=== PATIENT | male | born 1965 | race Caucasian/White ===

== ENCOUNTER 2017-07-22 22:36 | Emergency (ER) | payer OTHER ==
--- NOTE | ~2017-07-22 | CT71 ---
[facility] A Service [facility] RADIOLOGY TEXT RESULTS PATIENT: LUCY DONNELLY LOCATION: [facility] : 65 UNIT #: [id number] AGE: [address]: Lucy Sommers MD SEX: M ORDER DR: [id number] [facility] [address] [place], [place] [address] [id number] MR#: [id number] #: [id number] NAME: LUCY DONNELLY. : 1965 SEX: M STUDY DATE/TIME: 07/23/2017 1:50 UNIT: NATHAN ROOM: STUDY DESCRIPTION: CT Head Wo Contrast Attending Physician: Lucy Sommers M.D. Ordering Physician: Edu Valdez D.O. Primary Care Physician: Niles Marie M.D. MEDICAL IMAGING REPORT This report is preliminary unless electronic signature is present EXAM CT head, noncontrast, 07/23/2017 HISTORY 51-year-old male in the ED with confusion/mental status changes today. Decreased responsiveness. TECHNIQUE CT examination of the head without IV contrast. This CT examination was performed with one or more of the following radiation dose reduction techniques: automatic exposure control, adjustment of mA and/or kV according to patient size, and iterative reconstruction. FINDINGS The images are degraded by patient motion artifact. No acute intracranial abnormality is visible. No acute skull fracture is demonstrated. Old facial fractures are noted including the right zygomatic arch, nasal bones and right maxilla. Mucosal thickening throughout the paranasal sinuses. Meyj-ug-cgzaschr generalized cerebral cortical atrophy, somewhat out of portion to the patient's age. This is stable since 09/06/2015. No evidence of intracranial hemorrhage, mass, mass effect, cerebral edema or progressive ventricular enlargement. IMPRESSION 1. Motion-limited examination. 2. No acute intracranial abnormality is demonstrated. No visible skull fracture. 3. Cmti-bf-ggmynxrd generalized cerebral atrophy somewhat out of portion [facility] RADIOLOGY TEXT RESULTS PATIENT: LUCY DONNELLY LOCATION: [facility] : 65 UNIT #: [id number] AGE: [address]: Lucy Sommers MD SEX: M ORDER DR: to the patient's age, but stable since 09/06/2015. 4. Extensive old facial fracture deformities including the right zygomatic arch, bilateral nasal bones and right maxilla. Extensive mucosal thickening throughout the visualized paranasal sinuses. Dictated by... Joselito Tafoya M.D. THIS IS AN ELECTRONICALLY VERIFIED REPORT Joselito Tafoya M.D. at 07/26/2017 11:07 PM PILAR/hira TD: 07/23/2017 13:46 JOB #: [id number] MEDICAL IMAGING REPORT Page 1 of 1 COPY
[2017-07-23 01:50] LABS: POC - CKMB 2.9 ng/mL (0.0-7.9); POC - TROPONIN <0.05 ng/mL (<=0.05)
[2017-07-23 02:01] LABS: INR 0.9; PARTIAL THROMBOPLASTIN TIME 24.5 SECONDS (23.5-31.3); PROTHROMBIN TIME (PATIENT) 9.7 SECONDS (10.0-11.7)
[2017-07-23 02:16] LABS: BASOPHIL# 0.1 X10e3 (0-0.3); BASOPHIL% 0.7 % (0-2.5); EOSINOPHIL# 1.9 X10e3 (0-0.7); EOSINOPHIL% 19.5 % (0.0-7.0); HEMATOCRIT 32.2 % (38.0-50.0); HEMOGLOBIN 9.8 gm/dL (13.0-16.0); LYMPHOCYTE# 1.6 X10e3 (1.0-3.5); LYMPHOCYTE% 16.6 % (17.0-45.0); MEAN CELL VOLUME 64.8 FL (83-96); MEAN CORPUSCULAR HEMOGLOBIN 19.7 PG (28-34); MEAN CORPUSCULAR HGB CONC 30.5 g/dL (30-36); MEAN PLATELET VOLUME 7.6 FL (6.5-11.5); MONOCYTE# 0.5 X10e3 (0-1.0); MONOCYTE% 5.1 % (3.0-12.0); NEUTROPHIL# 5.5 X10e3 (1.5-7.1); NEUTROPHIL% 58.1 % (40-75); PLATELET COUNT 380 X10e3 (140-420); RED BLOOD COUNT 4.97 X10e (3.90-5.60); RED CELL DISTRIBUTION WIDTH 19.4 % (11.0-15.5); WHITE BLOOD COUNT 9.5 X10e3 (4.0-10.5)
[2017-07-23 02:19] LABS: DIFF IND YES
[2017-07-23 02:27] LABS: ALBUMIN SERUM 3.9 g/dL (3.5-5.0); ALKALINE PHOSPHATASE 50 U/L (32-92); ALT (SGPT) 57 U/L (10-40); AST (SGOT) 68 U/L (10-42); BILIRUBIN, DIRECT 0.1 mg/dL (0.0-0.2); BILIRUBIN,INDIRECT 0.2 mg/dL (0.0-0.9); BILIRUBIN,TOTAL 0.3 mg/dL (0.2-2.0); BLOOD UREA NITROGEN 9 mg/dL (9-23); CALCIUM SERUM 8.1 mg/dL (8.4-10.2); CARBON DIOXIDE 22 mmol/L (22-31); CHLORIDE 105 mmol/L (100-111); CREATININE SERUM 0.6 mg/dL (0.6-1.4); GLOM FILT RATE Estimated 116.5 mL/min (>60); GLUCOSE FASTING 76 mg/dL (70-110); POTASSIUM 3.7 mmol/L (3.5-5.1); PROTEIN TOTAL SERUM 7.3 g/dL (6.0-8.3); SALICYLATE <4.0 mg/dL; SODIUM 137 mmol/L (135-145)
[2017-07-23 02:28] LABS: ACETAMINOPHEN <10 ug/mL; ALCOHOL BLOOD 274 mg/dL (0)
[2017-07-23 03:06] LABS: ANISOCYTOSIS SL; MICROCYTOSIS MOD; PLATELET ESTIMATE NORMAL (NORMAL)
[2017-07-23 03:07] LABS: ELLIPTOCYTES PRESENT; HYPOCHROMIA SL; SPHEROCYTE SL; TARGET CELLS SL
== END 2017-07-23 08:22 | disposition home or self-care (01) ==
LOC: CED 22:36
PROVIDERS: Emergency Medicine
DX: F10.129 Alcohol abuse with intoxication, unspecified (principal); R45.851 Suicidal ideations; F32.9 Major depressive disorder, single episode, unspecified
CPT/HCPCS: 36415; 70450; 80048; 80076; 82553; 84484; 85025; 85610; 85730; 96374; 99285; G0480; J3411; J3475